=== PATIENT | female | born 1940 | race Caucasian/White ===

== ENCOUNTER → 2020-01-20 | Outpatient (CLI) | payer BC ==
--- NOTE | 2020-01-20 16:30 | KCIC ---
PROCEDURE: KUB STUDY DATE: 01/20/2020 CLINICAL INDICATION / HISTORY: Reason: HX RIGHT KIDNEY STONE / Spl. Instructions: / History: . TECHNIQUE: Single AP image of the abdomen was obtained. COMPARISON: None currently available FINDINGS: Several calcifications project over the inferior pole of the right kidney and are suggestive of fragmented small kidney stones. Additional calcifications projecting in the bilateral pars spinal soft tissues a likely extrarenal and could be pancreatic. Finally, calcifications bilaterally in the pelvis are present that are suggestive of phleboliths. Additional curvilinear calcifications in the bilateral adnexa are consistent with arterial calcifications. There is moderate stool throughout the visualized large bowel. Mild demineralization. Chronic anterior compression fracture at L1. No acute or aggressive appearing osseous lesions.. IMPRESSION: 1. Probable inferior pole right kidney stones. This can be confirmed with CT without IV contrast if clinically warranted. 2. Moderate stool throughout the visualized large bowel. Correlate for constipation. Electronically signed by: Baljit Smith MD (01/20/2020 4:28 PM) [id number]
== END | disposition home or self-care (01) ==
LOC: KCIC 13:24
PROVIDERS: ATTEND Urology
DX: N20.0 Calculus of kidney (principal); N28.89 Other specified disorders of kidney and ureter; N85.8 Other specified noninflammatory disorders of uterus; K59.09 Other constipation; S32.010A Wedge compression fracture of first lumbar vertebra, initial encounter for closed fracture; X58.XXXA Exposure to other specified factors, initial encounter; Y93.89 Activity, other specified; Y92.89 Other specified places as the place of occurrence of the external cause; Y99.8 Other external cause status
CPT/HCPCS: 74018

== ENCOUNTER → 2021-01-27 | Outpatient (CLI) | payer BC ==
--- NOTE | 2021-01-27 14:10 | KCIC ---
EXAM: Abdomen, single view. HISTORY: Right nephrolithiasis. COMPARISON: 01/20/2020 FINDINGS: A frontal view the abdomen is obtained. There is gas and stool within the colon. There is g as within the stomach and there are nondistended air-filled loops of small bowel. There is no evidenc e of bowel obstruction. There is right nephrolithiasis. The largest stone measures approximately 5 mm . The number and size of stones is not significantly changed compared to the prior study. There may b e few tiny nonobstructing left renal stones, difficult to assess given overlying bowel. There are mul tiple pelvic phleboliths. There is degenerative change involving the spine. There is a chronic L1 com pression fracture. IMPRESSION: 1. Right nephrolithiasis, not appreciably changed compared to the prior study. There may also be tiny nonobstructing left renal stones, difficult to assess given overlying bowel. 2. Nonobstructive bowel gas pattern. Electronically signed by: Viviana Henriquez MD (01/27/2021 2:07 PM) [id number]
== END ==
LOC: KCIC 13:26
PROVIDERS: ATTEND Urology
DX: N20.0 Calculus of kidney (principal); M48.56XA Collapsed vertebra, not elsewhere classified, lumbar region, initial encounter for fracture; I87.8 Other specified disorders of veins
CPT/HCPCS: 74018